=== PATIENT | male | born 1955 | race Caucasian/White ===

== ENCOUNTER 2022-09-25 05:27 | Inpatient (IN) | payer MEDICARE, OTHER ==
[2022-09-25] MEDS ORDERED: Ondansetron PF 4 MG/2 ML Vial ONE ×2 (05:52→17:22)
[2022-09-25] MEDS ORDERED: Morphine 4 MG/ML VIAL ONE ×3 (05:52→10:05)
[2022-09-25 06:53] LABS: #Basophils 0.1 10x3/uL (0.0-0.2); #Eosinphils 0.2 10x3/uL (0.0-0.5); #Monocytes 0.9 10x3/uL (0.0-1.1); #Neutrophils 10.4 10x3/uL (1.5-8.4); %Basophils 0.4 % (0.0-2.0); %Eosinophils 1.2 % (0.0-6.0); %Lymphocytes 7.2 % (18.0-47.0); %Monocytes 7.3 % (0.0-10.0); %Neutrophils 83.4 % (40.0-75.0); Hemoglobin 14.9 g/dL (13.5-17.5); Mean Corpuscular HGB CONC 31.8 g/dL (32.0-36.0); Mean Corpuscular Hemoglobin 30.1 pg (27.0-33.0); Mean Corpuscular Volume 94.7 fl (81.2-95.1); Mean Platelet Volume 10.9 fl (7.4-10.4); Platelet Count 138 10x3/uL (150-450); Red Blood Cell (RBC) Count 4.95 10x6/uL (4.32-5.72); White Blood Cell (WBC) Count 12.4 10x3/uL (3.5-10.5)
[2022-09-25 08:12] LABS: ALT (SGPT) 30 U/L (8-55); AST (SGOT) 25 U/L (5-34); Albumin 3.5 g/dL (3.4-4.8); Alkaline Phosphatase 100 U/L (40-110); Anion Gap 17 mmol/L (10-20); BUN (Urea Nitrogen) 30 mg/dL (8.4-25.7); Bilirubin, Total 0.5 mg/dL (0.2-1.2); Calc. Creatinine Clearance 0 mL/min (70-130); Calcium 8.7 mg/dL (7.8-10.44); Carbon Dioxide 18 mmol/L (23-31); Chloride 111 mmol/L (98-107); Estimated GFR 30; Globulin 3.2 g/dL (2.4-3.5); Glucose 237 mg/dL (80-115); Lipase 26 U/L (8-78); Potassium 5.5 mmol/L (3.5-5.1); Protein, Total 6.7 g/dL (5.8-8.1); Sodium 140 mmol/L (136-145)
[2022-09-25 08:15] LABS: Bilirubin Neg (Negative); Blood, Urine 150 (Negative); Clarity Slightly Cloudy (Clear); Glucose, Urine (Dipstick) 250 mg/dL (Negative); Ketone, Urine Negative (Negative); Leukocyte 500 (Negative); Nitrite Positive (Negative); Protein, Urine (Dipstick) 30 mg/dl (Neg-Trace); Urobilinogen Normal mg/dL (Less than 2)
[2022-09-25 08:27] LABS: Squamous Epithelial 0-3 HPF (0-3); WBC/HPF 21-50 HPF (0-3)
[2022-09-25 08:28] LABS: Bacteria/HPF 2+ HPF (None Seen); Oval Fat Bodies/HPF 1+ HPF (None Seen)
[2022-09-25] MEDS ORDERED: cefTRIAXone (ROCEPHIN) 2 GM VIAL ONE (09:58)
[2022-09-25] MEDS ORDERED: Senokot S 8.6-50 MG TAB PO PRN (13:29)
[2022-09-25] MEDS ORDERED: Acetaminophen 325 MG TAB PO PRN (13:29)
[2022-09-25] MEDS ORDERED: Ondansetron ODT 4 MG TAB PO PRN (13:29)
[2022-09-25] MEDS ORDERED: Dextrose 5% in Water 1,000 ML IV PRN (13:31)
[2022-09-25] MEDS ORDERED: Dextrose 50% Abboject 50 ML SYRINGE SLOW IVP PRN (13:31)
[2022-09-25] MEDS ORDERED: Iopamidol 0 ML ONE (13:54)
[2022-09-25 15:33] LABS: SARS-CoV-2 NAA Rapid Test Not Detected (NotDetected)
[2022-09-25] MEDS ORDERED: SUGAMMADEX SODIUM 200 MG/2 ML VIAL ONE (17:16)
[2022-09-25] MEDS ORDERED: PROPOFOL 20 ML ONE ×2 (17:20→17:39)
[2022-09-25] MEDS ORDERED: Fentanyl 100 MCG/2 ML VIAL ONE (17:21)
[2022-09-25] MEDS ORDERED: Dexamethasone 4 mg/ml Vial ONE (17:22)
[2022-09-25] MEDS ORDERED: PHENYLEPHRINE-NS 100 MCG/ML 10 ML SYRINGE ONE ×3 (17:23→18:34)
[2022-09-25] MEDS ORDERED: Lidocaine 1% PF 5 ML VIAL ONE (17:23)
[2022-09-25] MEDS ORDERED: Rocuronium Bromide 10 MG/ML (10ML VIAL) ONE (17:23)
[2022-09-25] MEDS ORDERED: Gentamicin 80 MG/2 ML VIAL ONE (17:25)
[2022-09-25] MEDS: Ondansetron PF 4 MG/2 ML Vial IVP PRN (20:11)
[2022-09-25] MEDS: Morphine 4 MG/ML VIAL SLOW IVP PRN (20:13)
[2022-09-25] MEDS: Ferrous Sulfate 325 MG TAB PO SCH (21:38)
[2022-09-25] MEDS: Lactated Ringer's 1,000 ML IV SCH (21:38)
[2022-09-25] MEDS: HumaLOG 300 UNITS/3 ML VIAL SC PRN (22:34)
[2022-09-26 01:52] VITALS: BMI 42.8
[2022-09-26] MEDS: Levothyroxine Sodium 50 MCG TAB PO SCH (06:03)
[2022-09-26] MEDS: HumaLOG 300 UNITS/3 ML VIAL SC PRN ×3 (06:06→20:27)
[2022-09-26 07:38] LABS: #Monocytes 0.8 10x3/uL (0.0-1.1); #Neutrophils 9.4 10x3/uL (1.5-8.4); %Basophils 0.1 % (0.0-2.0); %Lymphocytes 8.2 % (18.0-47.0); %Neutrophils 84.2 % (40.0-75.0); Hemoglobin 13.2 g/dL (13.5-17.5); Mean Corpuscular Hemoglobin 30.4 pg (27.0-33.0); Mean Corpuscular Volume 94.9 fl (81.2-95.1); Mean Platelet Volume 11.5 fl (7.4-10.4); Platelet Count 147 10x3/uL (150-450); RBC Distribution Width 13.6 % (11.5-14.5); Red Blood Cell (RBC) Count 4.34 10x6/uL (4.32-5.72); White Blood Cell (WBC) Count 11.2 10x3/uL (3.5-10.5)
[2022-09-26] MEDS: Lactated Ringer's 1,000 ML IV SCH (07:38)
[2022-09-26 07:51] LABS: Anion Gap 14 mmol/L (10-20); BUN (Urea Nitrogen) 32 mg/dL (8.4-25.7); Calc. Creatinine Clearance 70 mL/min (70-130); Calcium 8.3 mg/dL (7.8-10.44); Carbon Dioxide 19 mmol/L (23-31); Chloride 110 mmol/L (98-107); Estimated GFR 30; Glucose 222 mg/dL (80-115); Magnesium 1.9 mg/dL (1.6-2.6); Potassium 5.7 mmol/L (3.5-5.1); Sodium 137 mmol/L (136-145)
[2022-09-26 08:16] LABS: Lymphocytes 4 % (21-51); Monocytes 7 % (0-10); Neutrophil 86 % (42-75); Reactive Lymphocytes 3 % (0-10)
[2022-09-26 08:17] LABS: Platelet Morphology Comment Appears Adequate
[2022-09-26] MEDS: cefTRIAXone\\ROCEPHIN 2 GM in Sodium Chloride 0.9% 100 ML IVPB SCH (09:18)
[2022-09-26] MEDS: Atorvastatin Calcium 10 MG TAB PO SCH (09:20)
[2022-09-26] MEDS: Ferrous Sulfate 325 MG TAB PO SCH ×3 (09:20→20:27)
[2022-09-26] MEDS: Tamsulosin HCl 0.4 MG CAP PO SCH (09:20)
[2022-09-26] MEDS ORDERED: LOKELMA 5 GM PACKET PO SCH (09:30)
[2022-09-26] MEDS ORDERED: Sodium Bicarbonate 150 MEQ, Admixture Fee 1 EACH in Dextrose 5% in Water 1,000 ML IV SCH (09:30)
[2022-09-26] MEDS: Morphine 4 MG/ML VIAL SLOW IVP PRN (17:40)
[2022-09-27] MEDS: Morphine 4 MG/ML VIAL SLOW IVP PRN ×3 (01:12→16:09)
[2022-09-27] MEDS: Levothyroxine Sodium 50 MCG TAB PO SCH (05:25)
[2022-09-27 06:10] LABS: #Eosinphils 0.1 10x3/uL (0.0-0.5); #Monocytes 0.8 10x3/uL (0.0-1.1); %Basophils 0.3 % (0.0-2.0); %Eosinophils 1.4 % (0.0-6.0); %Lymphocytes 12.6 % (18.0-47.0); %Monocytes 9.2 % (0.0-10.0); %Neutrophils 76.2 % (40.0-75.0); Hemoglobin 14.2 g/dL (13.5-17.5); Mean Corpuscular HGB CONC 32.3 g/dL (32.0-36.0); Mean Corpuscular Hemoglobin 30.2 pg (27.0-33.0); Mean Corpuscular Volume 93.6 fl (81.2-95.1); Mean Platelet Volume 10.8 fl (7.4-10.4); Platelet Count 157 10x3/uL (150-450); White Blood Cell (WBC) Count 9.2 10x3/uL (3.5-10.5)
[2022-09-27 06:28] LABS: Anion Gap 16 mmol/L (10-20); BUN (Urea Nitrogen) 32 mg/dL (8.4-25.7); Calc. Creatinine Clearance 70 mL/min (70-130); Calcium 8.8 mg/dL (7.8-10.44); Carbon Dioxide 21 mmol/L (23-31); Chloride 107 mmol/L (98-107); Estimated GFR 30; Glucose 184 mg/dL (80-115); Potassium 4.5 mmol/L (3.5-5.1); Sodium 139 mmol/L (136-145)
[2022-09-27] MEDS: HumaLOG 300 UNITS/3 ML VIAL SC PRN ×3 (06:51→20:44)
[2022-09-27] MEDS: Ferrous Sulfate 325 MG TAB PO SCH ×3 (08:50→20:38)
[2022-09-27] MEDS: Tamsulosin HCl 0.4 MG CAP PO SCH (08:55)
[2022-09-27] MEDS: Atorvastatin Calcium 10 MG TAB PO SCH (08:55)
[2022-09-27] MEDS: cefTRIAXone\\ROCEPHIN 2 GM in Sodium Chloride 0.9% 100 ML IVPB SCH (08:58)
[2022-09-27] MEDS ORDERED: Senokot S 8.6-50 MG TAB PO PRN (10:15)
[2022-09-27] MEDS: Ondansetron PF 4 MG/2 ML Vial IVP PRN (11:32)
[2022-09-27] MEDS ORDERED: Morphine 4 MG/ML VIAL SLOW IVP PRN (16:38)
[2022-09-27] MEDS ORDERED: Oxybutynin 5 MG TAB PO SCH (17:00)
[2022-09-28] MEDS: Levothyroxine Sodium 50 MCG TAB PO SCH (05:35)
[2022-09-28] MEDS: HumaLOG 300 UNITS/3 ML VIAL SC PRN (06:32)
[2022-09-28] MEDS: Tamsulosin HCl 0.4 MG CAP PO SCH (08:09)
[2022-09-28] MEDS: cefTRIAXone\\ROCEPHIN 2 GM in Sodium Chloride 0.9% 100 ML IVPB SCH (08:09)
[2022-09-28] MEDS: Ferrous Sulfate 325 MG TAB PO SCH (08:10)
[2022-09-28] MEDS: Atorvastatin Calcium 10 MG TAB PO SCH (08:10)
[2022-09-28] MEDS ORDERED: Oxybutynin 5 MG TAB PO SCH (09:00)
[2022-09-28 13:20] VITALS: BP 131/61; TEMP 98.5
== END 2022-09-28 14:02 | disposition home or self-care (01) | DRG 660 ==
LOC: CSHERS 05:27 → CSHTELE 17:18
PROVIDERS: ADMIT Internal Medicine; ATTEND Internal Medicine
PROC: 0TP98DZ Removal of Intraluminal Device from Ureter, Via Natural or Artificial Opening Endoscopic (ICD-10-PCS; principal; 2022-09-25)
PROC: 0T778DZ Dilation of Left Ureter with Intraluminal Device, Via Natural or Artificial Opening Endoscopic (ICD-10-PCS; 2022-09-25)
DX: T83.89XA Other specified complication of genitourinary prosthetic devices, implants and grafts, initial encounter (principal); N13.6 Pyonephrosis; Z68.41 Body mass index [BMI] 40.0-44.9, adult; N17.9 Acute kidney failure, unspecified; Y83.8 Other surgical procedures as the cause of abnormal reaction of the patient, or of later complication, without mention of misadventure at the time of the procedure; I12.9 Hypertensive chronic kidney disease with stage 1 through stage 4 chronic kidney disease, or unspecified chronic kidney disease; E11.22 Type 2 diabetes mellitus with diabetic chronic kidney disease; N18.30 Chronic kidney disease, stage 3 unspecified; E87.6 Hypokalemia; Z20.822 Contact with and (suspected) exposure to COVID-19; E78.00 Pure hypercholesterolemia, unspecified; Z60.2 Problems related to living alone; Z88.8 Allergy status to other drugs, medicaments and biological substances; Z86.718 Personal history of other venous thrombosis and embolism; Z79.01 Long term (current) use of anticoagulants; Z79.4 Long term (current) use of insulin; Z79.899 Other long term (current) drug therapy; Z79.890 Hormone replacement therapy; Z88.0 Allergy status to penicillin; Z88.2 Allergy status to sulfonamides; Z80.9 Family history of malignant neoplasm, unspecified; Z83.3 Family history of diabetes mellitus; Z82.49 Family history of ischemic heart disease and other diseases of the circulatory system; Z87.891 Personal history of nicotine dependence; Z86.711 Personal history of pulmonary embolism; E66.01 Morbid (severe) obesity due to excess calories; E03.9 Hypothyroidism, unspecified
CPT/HCPCS: 36415; 36416; 51600; 74176; 74430; 80048; 80053; 81003; 81015; 83605; 83690; 83735; 85025; 87040; 87086; 93005; 93010; 94760; 96361; 96365; 96366; 96375; 96376; C1769; C2625; J0696; J1100; J1580; J1650; J1815; J2270; J2405; J2704; J3010; J3490; J7070; J7120; Q9967; U0002

== ENCOUNTER 2023-08-10 06:19 | Inpatient (IN) | payer MEDICARE, OTHER ==
[2023-08-10] MEDS ORDERED: Dexamethasone 10 MG/ML VIAL ONE (06:43)
[2023-08-10 07:04] LABS: #Eosinphils 0.2 10x3/uL (0.0-0.5); #Monocytes 0.4 10x3/uL (0.0-1.1); #Neutrophils 12.2 10x3/uL (1.5-8.4); %Basophils 0.3 % (0.0-2.0); %Eosinophils 1.3 % (0.0-6.0); %Monocytes 2.7 % (0.0-10.0); Hematocrit 45.5 % (38.8-50.0); Hemoglobin 14.7 g/dL (13.5-17.5); Mean Corpuscular HGB CONC 32.3 g/dL (32.0-36.0); Mean Corpuscular Volume 92.9 fl (81.2-95.1); Mean Platelet Volume 11.1 fl (7.4-10.4); Platelet Count 143 10x3/uL (150-450); RBC Distribution Width 13.3 % (11.5-14.5); White Blood Cell (WBC) Count 13.4 10x3/uL (3.5-10.5)
[2023-08-10 07:19] LABS: ALT (SGPT) 28 U/L (8-55); AST (SGOT) 25 U/L (5-34); Albumin 3.6 g/dL (3.4-4.8); Alkaline Phosphatase 107 U/L (40-110); Anion Gap 15 mmol/L (10-20); BUN (Urea Nitrogen) 25 mg/dL (8.4-25.7); Bilirubin, Total 0.4 mg/dL (0.2-1.2); Calc. Creatinine Clearance 0 mL/min (70-130); Calcium 8.7 mg/dL (7.8-10.44); Carbon Dioxide 18 mmol/L (23-31); Chloride 107 mmol/L (98-107); Estimated GFR 36; Globulin 3.5 g/dL (2.4-3.5); Glucose 356 mg/dL (80-115); Potassium 4.5 mmol/L (3.5-5.1); Protein, Total 7.1 g/dL (5.8-8.1); Sodium 135 mmol/L (136-145)
[2023-08-10 07:25] LABS: Troponin I Less than 0.010 ng/mL (< 0.028)
[2023-08-10] MEDS ORDERED: Morphine 4 MG/ML VIAL ONE (07:49)
[2023-08-10] MEDS ORDERED: Ondansetron PF 4 MG/2 ML Vial ONE (07:49)
[2023-08-10] MEDS ORDERED: Cefepime 2 GM VIAL ONE (07:49)
[2023-08-10 08:39] LABS: Bilirubin Neg (Negative); Blood, Urine 50 (Negative); Glucose, Urine (Dipstick) >=1000 mg/dL (Negative); Ketone, Urine Negative (Negative); Leukocyte 500 (Negative); Nitrite Positive (Negative); Protein, Urine (Dipstick) 100 mg/dl (Neg-Trace); Urobilinogen Normal mg/dL (Less than 2)
[2023-08-10 08:48] LABS: Clarity Slightly Cloudy (Clear)
[2023-08-10 08:49] LABS: Bacteria/HPF 3+ HPF (None Seen); CAUTI Indications for Culture Fever or rigors; Squamous Epithelial 0-3 HPF (0-3); WBC/HPF Greater than 50 HPF (0-3)
[2023-08-10 08:51] LABS: Urine Culture Reflex Yes Yes
[2023-08-10 09:50] LABS: Lactic Acid 2.2 mmol/L (0.5-2.2)
[2023-08-10 11:12] VITALS: BMI 43.0
[2023-08-10] MEDS ORDERED: HYDROcodone/Acetaminophen 5/325 mg Tablet PO PRN (11:20)
[2023-08-10] MEDS ORDERED: Ondansetron ODT 4 MG TAB PO PRN (11:52)
[2023-08-10] MEDS ORDERED: Dextrose 5% in Water 1,000 ML IV PRN (11:55)
[2023-08-10] MEDS ORDERED: Glucagon 1 MG/ML KIT IM PRN (11:55)
[2023-08-10] MEDS ORDERED: Dextrose 50% Abboject 50 ML SYRINGE SLOW IVP PRN (11:55)
[2023-08-10] MEDS: HYDROcodone/Acetaminophen 5/325 mg Tablet PO PRN (11:59)
[2023-08-10] MEDS: Sodium Chloride 0.9% 1,000 ML IV SCH (12:42)
[2023-08-10] MEDS: Insulin Regular 300 UNITS/3 ML VIAL SC PRN (12:43)
[2023-08-10] MEDS: VANCOMYCIN 2 GRAM/400 ML BAG 2 GM in Premix 1 BAG IVPB SCH (14:22)
[2023-08-10] MEDS: Morphine 4 MG/ML VIAL SLOW IVP PRN (18:12)
[2023-08-10] MEDS: Insulin Regular 300 UNITS/3 ML VIAL SC SCH (20:13)
[2023-08-10] MEDS: cefTRIAXone\\ROCEPHIN 1 GM in Sodium Chloride 0.9% 100 ML IVPB SCH (20:14)
[2023-08-10] MEDS: Apixaban 5 MG TAB PO SCH (20:16)
[2023-08-11] MEDS: Insulin Regular 300 UNITS/3 ML VIAL SC PRN (00:15)
[2023-08-11] MEDS: Acetaminophen 325 MG TAB PO PRN (04:07)
[2023-08-11 04:25] LABS: Hematocrit 43.3 % (38.8-50.0); Hemoglobin 14.5 g/dL (13.5-17.5); Mean Corpuscular HGB CONC 33.5 g/dL (32.0-36.0); Mean Corpuscular Hemoglobin 31.2 pg (27.0-33.0); Mean Corpuscular Volume 93.1 fl (81.2-95.1); Platelet Count 144 10x3/uL (150-450); RBC Distribution Width 13.5 % (11.5-14.5); Red Blood Cell (RBC) Count 4.65 10x6/uL (4.32-5.72); White Blood Cell (WBC) Count 21.7 10x3/uL (3.5-10.5)
[2023-08-11 04:30] LABS: MDiff Complete? YES
[2023-08-11 04:34] LABS: Anion Gap 13 mmol/L (10-20); BUN (Urea Nitrogen) 22 mg/dL (8.4-25.7); Calc. Creatinine Clearance 82 mL/min (70-130); Calcium 8.3 mg/dL (7.8-10.44); Carbon Dioxide 19 mmol/L (23-31); Chloride 108 mmol/L (98-107); Estimated GFR 36; Glucose 312 mg/dL (80-115); Potassium 4.6 mmol/L (3.5-5.1); Sodium 135 mmol/L (136-145)
[2023-08-11 04:58] LABS: Platelet Adequacy Comment Appears Decreased; RBC Morph Comment Within Normal Limits
[2023-08-11 05:01] LABS: Band 11 % (5-11); Lymphocytes 5 % (21-51); Monocytes 6 % (0-10); Neutrophil 78 % (42-75)
[2023-08-11] MEDS: Levothyroxine Sodium 50 MCG TAB PO SCH (06:10)
[2023-08-11] MEDS: VANCOMYCIN 2 GRAM/400 ML BAG 2 GM in Premix 1 BAG IVPB SCH (08:29)
[2023-08-11] MEDS ORDERED: Vancomycin 1 GM in Premix 1 BAG IVPB SCH (09:00)
[2023-08-11] MEDS: Ondansetron PF 4 MG/2 ML Vial IVP PRN (12:56)
[2023-08-11 13:43] LABS: Hemoglobin A1c 12.6 % (4.0-6.0)
[2023-08-12 03:48] LABS: #Basophils 0.1 10x3/uL (0.0-0.2); #Monocytes 1.1 10x3/uL (0.0-1.1); #Neutrophils 15.4 10x3/uL (1.5-8.4); %Basophils 0.3 % (0.0-2.0); %Eosinophils 0.2 % (0.0-6.0); %Lymphocytes 6.6 % (18.0-47.0); %Monocytes 5.8 % (0.0-10.0); %Neutrophils 85.3 % (40.0-75.0); Hematocrit 42.2 % (38.8-50.0); Hemoglobin 13.7 g/dL (13.5-17.5); Mean Corpuscular HGB CONC 32.5 g/dL (32.0-36.0); Mean Corpuscular Hemoglobin 30.4 pg (27.0-33.0); Mean Corpuscular Volume 93.8 fl (81.2-95.1); Mean Platelet Volume 10.7 fl (7.4-10.4); Platelet Count 140 10x3/uL (150-450); RBC Distribution Width 13.9 % (11.5-14.5); White Blood Cell (WBC) Count 18.1 10x3/uL (3.5-10.5)
[2023-08-12 03:59] LABS: Anion Gap 11 mmol/L (10-20); BUN (Urea Nitrogen) 23 mg/dL (8.4-25.7); Calc. Creatinine Clearance 94 mL/min (70-130); Calcium 8.4 mg/dL (7.8-10.44); Carbon Dioxide 19 mmol/L (23-31); Chloride 109 mmol/L (98-107); Estimated GFR 42; Glucose 176 mg/dL (80-115); Potassium 4.3 mmol/L (3.5-5.1); Sodium 135 mmol/L (136-145)
[2023-08-12] MEDS: Cyclobenzaprine 10 MG TAB PO PRN (16:49)
[2023-08-12] MEDS: cefTRIAXone\\ROCEPHIN 2 GM in Sodium Chloride 0.9% 100 ML IVPB SCH (21:55)
[2023-08-13 04:59] LABS: #Basophils 0.1 10x3/uL (0.0-0.2); #Eosinphils 0.2 10x3/uL (0.0-0.5); #Neutrophils 9.6 10x3/uL (1.5-8.4); %Basophils 0.4 % (0.0-2.0); %Eosinophils 1.7 % (0.0-6.0); %Lymphocytes 8.8 % (18.0-47.0); %Monocytes 7.9 % (0.0-10.0); %Neutrophils 79.6 % (40.0-75.0); Hematocrit 40.5 % (38.8-50.0); Hemoglobin 12.9 g/dL (13.5-17.5); Mean Corpuscular HGB CONC 31.9 g/dL (32.0-36.0); Mean Corpuscular Hemoglobin 29.8 pg (27.0-33.0); Mean Corpuscular Volume 93.5 fl (81.2-95.1); Mean Platelet Volume 11.2 fl (7.4-10.4); Platelet Count 144 10x3/uL (150-450); RBC Distribution Width 13.8 % (11.5-14.5); Red Blood Cell (RBC) Count 4.33 10x6/uL (4.32-5.72); White Blood Cell (WBC) Count 12.1 10x3/uL (3.5-10.5)
[2023-08-13 05:12] LABS: Anion Gap 12 mmol/L (10-20); BUN (Urea Nitrogen) 23 mg/dL (8.4-25.7); Calc. Creatinine Clearance 99 mL/min (70-130); Calcium 8.7 mg/dL (7.8-10.44); Carbon Dioxide 20 mmol/L (23-31); Chloride 108 mmol/L (98-107); Estimated GFR 45; Glucose 171 mg/dL (80-115); Potassium 3.9 mmol/L (3.5-5.1); Sodium 136 mmol/L (136-145)
[2023-08-13] MEDS ORDERED: Linezolid 600 MG TAB PO SCH ×2 (12:00→21:00)
[2023-08-13] MEDS: Doxycycline 100 MG CAP PO SCH ×2 (13:21→19:50)
[2023-08-13] MEDS: AMOXicillin 250 MG CAP PO SCH (13:21)
[2023-08-13] MEDS: Senokot S 8.6-50 MG TAB PO SCH ×2 (15:26→22:49)
[2023-08-13] MEDS: Magnesium Citrate 300 ML BOT PO SCH (15:27)
[2023-08-14 04:24] LABS: #Basophils 0.1 10x3/uL (0.0-0.2); #Eosinphils 0.3 10x3/uL (0.0-0.5); #Monocytes 0.9 10x3/uL (0.0-1.1); #Neutrophils 7.9 10x3/uL (1.5-8.4); %Basophils 0.5 % (0.0-2.0); %Lymphocytes 11.7 % (18.0-47.0); %Monocytes 8.4 % (0.0-10.0); %Neutrophils 75.3 % (40.0-75.0); Hematocrit 41.1 % (38.8-50.0); Hemoglobin 13.3 g/dL (13.5-17.5); Mean Corpuscular HGB CONC 32.4 g/dL (32.0-36.0); Mean Corpuscular Hemoglobin 30.2 pg (27.0-33.0); Mean Corpuscular Volume 93.2 fl (81.2-95.1); Mean Platelet Volume 11.2 fl (7.4-10.4); Platelet Count 164 10x3/uL (150-450); RBC Distribution Width 13.6 % (11.5-14.5); Red Blood Cell (RBC) Count 4.41 10x6/uL (4.32-5.72); White Blood Cell (WBC) Count 10.4 10x3/uL (3.5-10.5)
[2023-08-14 04:38] LABS: Anion Gap 13 mmol/L (10-20); BUN (Urea Nitrogen) 22 mg/dL (8.4-25.7); Calc. Creatinine Clearance 108 mL/min (70-130); Calcium 8.7 mg/dL (7.8-10.44); Carbon Dioxide 19 mmol/L (23-31); Chloride 108 mmol/L (98-107); Estimated GFR 50; Glucose 185 mg/dL (80-115); Sodium 136 mmol/L (136-145)
[2023-08-14] MEDS: AMOXicillin 250 MG CAP PO SCH (09:53)
[2023-08-14] MEDS ORDERED: Bisacodyl 10 MG SUPP PR PRN (16:31)
[2023-08-14] MEDS: HYDROcodone/Acetaminophen 5/325 mg Tablet PO PRN (21:13)
[2023-08-15 05:10] LABS: #Basophils 0.1 10x3/uL (0.0-0.2); #Eosinphils 0.4 10x3/uL (0.0-0.5); #Monocytes 0.9 10x3/uL (0.0-1.1); #Neutrophils 6.1 10x3/uL (1.5-8.4); %Basophils 0.6 % (0.0-2.0); %Eosinophils 4.3 % (0.0-6.0); %Lymphocytes 12.8 % (18.0-47.0); %Monocytes 9.9 % (0.0-10.0); %Neutrophils 70.6 % (40.0-75.0); Hematocrit 40.8 % (38.8-50.0); Hemoglobin 13.5 g/dL (13.5-17.5); Mean Corpuscular HGB CONC 33.1 g/dL (32.0-36.0); Mean Corpuscular Volume 93.8 fl (81.2-95.1); Mean Platelet Volume 10.5 fl (7.4-10.4); Platelet Count 176 10x3/uL (150-450); RBC Distribution Width 13.6 % (11.5-14.5); Red Blood Cell (RBC) Count 4.35 10x6/uL (4.32-5.72); White Blood Cell (WBC) Count 8.7 10x3/uL (3.5-10.5)
[2023-08-15 05:23] LABS: Anion Gap 11 mmol/L (10-20); BUN (Urea Nitrogen) 23 mg/dL (8.4-25.7); Calc. Creatinine Clearance 99 mL/min (70-130); Calcium 8.8 mg/dL (7.8-10.44); Carbon Dioxide 21 mmol/L (23-31); Chloride 109 mmol/L (98-107); Estimated GFR 45; Glucose 215 mg/dL (80-115); Potassium 4.4 mmol/L (3.5-5.1); Sodium 137 mmol/L (136-145)
[2023-08-15] MEDS: Polyethylene Glycol 3350 17 GM Packet PO PRN (08:47)
[2023-08-15] MEDS: Milk Of Magnesia 30 ML UDCUP PO SCH (12:33)
[2023-08-15] MEDS: Fleet Saline Enema 133 ML BOT PR SCH (13:18)
[2023-08-16 05:34] LABS: Anion Gap 12 mmol/L (10-20); BUN (Urea Nitrogen) 21 mg/dL (8.4-25.7); Calc. Creatinine Clearance 117 mL/min (70-130); Calcium 8.8 mg/dL (7.8-10.44); Carbon Dioxide 22 mmol/L (23-31); Chloride 108 mmol/L (98-107); Estimated GFR 55; Glucose 174 mg/dL (80-115); Potassium 4.2 mmol/L (3.5-5.1); Sodium 138 mmol/L (136-145)
[2023-08-16 05:36] LABS: #Basophils 0.1 10x3/uL (0.0-0.2); #Eosinphils 0.3 10x3/uL (0.0-0.5); #Monocytes 0.8 10x3/uL (0.0-1.1); #Neutrophils 5.4 10x3/uL (1.5-8.4); %Basophils 0.9 % (0.0-2.0); %Eosinophils 4.1 % (0.0-6.0); %Lymphocytes 15.1 % (18.0-47.0); %Monocytes 9.7 % (0.0-10.0); %Neutrophils 66.1 % (40.0-75.0); Hematocrit 42.5 % (38.8-50.0); Hemoglobin 13.8 g/dL (13.5-17.5); Mean Corpuscular HGB CONC 32.5 g/dL (32.0-36.0); Mean Corpuscular Hemoglobin 30.1 pg (27.0-33.0); Mean Corpuscular Volume 92.6 fl (81.2-95.1); Mean Platelet Volume 10.2 fl (7.4-10.4); Platelet Count 205 10x3/uL (150-450); RBC Distribution Width 13.6 % (11.5-14.5); Red Blood Cell (RBC) Count 4.59 10x6/uL (4.32-5.72); White Blood Cell (WBC) Count 8.1 10x3/uL (3.5-10.5)
[2023-08-16 12:04] VITALS: BP 144/74; TEMP 98.1
== END 2023-08-16 13:26 | disposition home or self-care (01) | DRG 872 ==
LOC: CSHERS 06:19 → CSHTELE 10:54
PROVIDERS: ADMIT Hospitalist; ATTEND Family Medicine
DX: A41.9 Sepsis, unspecified organism (principal); N10 Acute pyelonephritis; L03.116 Cellulitis of left lower limb; R65.20 Severe sepsis without septic shock; Z88.8 Allergy status to other drugs, medicaments and biological substances; Z88.0 Allergy status to penicillin; Z88.2 Allergy status to sulfonamides; Z88.1 Allergy status to other antibiotic agents; Z79.899 Other long term (current) drug therapy; Z79.01 Long term (current) use of anticoagulants; Z79.4 Long term (current) use of insulin; E03.9 Hypothyroidism, unspecified; E78.00 Pure hypercholesterolemia, unspecified; Z98.890 Other specified postprocedural states; N18.30 Chronic kidney disease, stage 3 unspecified; E11.22 Type 2 diabetes mellitus with diabetic chronic kidney disease; I12.9 Hypertensive chronic kidney disease with stage 1 through stage 4 chronic kidney disease, or unspecified chronic kidney disease; Z83.3 Family history of diabetes mellitus; Z82.49 Family history of ischemic heart disease and other diseases of the circulatory system; Z87.891 Personal history of nicotine dependence; K63.89 Other specified diseases of intestine; K59.00 Constipation, unspecified
CPT/HCPCS: 36415; 36416; 71045; 74176; 80048; 80053; 80202; 81001; 83036; 83605; 84145; 84484; 85025; 87040; 87077; 87086; 87149; 87186; 93005; 96374; 96375; J0692; J0696; J1100; J1815; J2270; J2405; J3370; J3490; J7050

== ENCOUNTER 2023-10-24 17:50 | Inpatient (IN) | payer MEDICARE ==
[2023-10-24] MEDS ORDERED: Morphine 4 MG/ML VIAL ONE (18:32)
[2023-10-24 19:05] LABS: ALT (SGPT) 27 U/L (8-55); AST (SGOT) 23 U/L (5-34); Albumin 3.1 g/dL (3.4-4.8); Alkaline Phosphatase 104 U/L (40-110); Anion Gap 13 mmol/L (10-20); BUN (Urea Nitrogen) 28 mg/dL (8.4-25.7); Bilirubin, Total 0.4 mg/dL (0.2-1.2); Calc. Creatinine Clearance 0 mL/min (70-130); Calcium 8.6 mg/dL (7.8-10.44); Carbon Dioxide 20 mmol/L (23-31); Chloride 107 mmol/L (98-107); Estimated GFR 37; Globulin 3.7 g/dL (2.4-3.5); Lipase 44 U/L (8-78); Magnesium 1.8 mg/dL (1.6-2.6); Potassium 4.4 mmol/L (3.5-5.1); Protein, Total 6.8 g/dL (5.8-8.1); Sodium 136 mmol/L (136-145)
[2023-10-24 19:13] LABS: #Basophils 0.06 10x3/uL (0.0-0.2); #Eosinphils 0.58 10x3/uL (0.0-0.5); #Monocytes 1.17 10x3/uL (0.0-1.1); #Neutrophils 10.22 10x3/uL (1.5-8.4); %Basophils 0.4 % (0.0-2.0); %Eosinophils 4.2 % (0.0-6.0); %Lymphocytes 13.2 % (18.0-47.0); %Monocytes 8.4 % (0.0-10.0); %Neutrophils 73.2 % (40.0-75.0); Hemoglobin 15.3 g/dL (13.5-17.5); Mean Corpuscular Hemoglobin 30.6 pg (27.0-33.0); Mean Platelet Volume 11.4 fl (7.4-10.4); Platelet Count 207 10x3/uL (150-450); RBC Distribution Width 13.8 % (11.5-14.5)
[2023-10-24 19:15] LABS: Glucose 427 mg/dL (80-115)
[2023-10-24] MEDS ORDERED: Metoclopramide HCl 10 MG (2 mL) VIAL ONE (19:17)
[2023-10-24] MEDS ORDERED: HYDROmorphone 0.5 MG/0.5 ML SYRINGE ONE (19:17)
[2023-10-24 20:06] LABS: Troponin I Less than 0.010 ng/mL (< 0.028)
[2023-10-24] MEDS ORDERED: cefTRIAXone (ROCEPHIN) 1 GM VIAL ONE (20:10)
[2023-10-24] MEDS ORDERED: Labetalol HCl 100 MG/20 ML VIAL ONE (20:11)
[2023-10-24 20:13] LABS: Bilirubin Neg (Negative); Blood, Urine 250 (Negative); Clarity Cloudy (Clear); Glucose, Urine (Dipstick) >=1000 mg/dL (Negative); Ketone, Urine Negative (Negative); Leukocyte 100 (Negative); Nitrite Positive (Negative); Protein, Urine (Dipstick) 100 mg/dl (Neg-Trace); Specific Gravity, Urine 1.015 (1.005-1.030); Urobilinogen Normal mg/dL (Less than 2)
[2023-10-24] MEDS ORDERED: Ketorolac Tromethamine 30 MG (1 mL) VIAL ONE (20:45)
[2023-10-24] MEDS ORDERED: Pantoprazole 40 MG VIAL ONE (20:45)
[2023-10-24 21:02] LABS: Bacteria/HPF 1+ HPF (None Seen); CAUTI Indications for Culture Pelvic or flank pain; RBC/HPF 21-50 HPF (0-3); Squamous Epithelial None Seen HPF (0-3)
[2023-10-24 21:03] LABS: Urine Culture Reflex No No
[2023-10-24] MEDS ORDERED: Calcium Carbonate 500 MG ChewTAB PO PRN (22:07)
[2023-10-24] MEDS ORDERED: Acetaminophen 325 MG TAB PO PRN (22:07)
[2023-10-24] MEDS ORDERED: Dextrose 50% Abboject 50 ML SYRINGE SLOW IVP PRN (22:07)
[2023-10-24] MEDS ORDERED: Glucagon 1 MG/ML KIT IM PRN (22:07)
[2023-10-24] MEDS ORDERED: Dextrose 5% in Water 1,000 ML IV PRN (22:07)
[2023-10-24] MEDS ORDERED: Ondansetron PF 4 MG/2 ML Vial IVP PRN (22:07)
[2023-10-24] MEDS ORDERED: Ipratropium/Albuterol 3 ML NEB NEB PRN (22:12)
[2023-10-24] MEDS: Meropenem 1 GM in Sodium Chloride 0.9% 100 ML IVPB SCH ×2 (22:15→23:45)
[2023-10-24 23:20] VITALS: BMI 44.6
[2023-10-24] MEDS: VANCOMYCIN 2 GRAM/400 ML BAG 2 GM in Premix 1 BAG IVPB SCH (23:22)
[2023-10-24] MEDS: Lactated Ringer's 1,000 ML IV SCH (23:39)
[2023-10-24] MEDS: Lantus 1000 UNITS/10 ML VIAL SC SCH (23:40)
[2023-10-24] MEDS: HumaLOG 300 UNITS/3 ML VIAL SC PRN (23:42)
[2023-10-24] MEDS: Morphine 4 MG/ML VIAL SLOW IVP PRN (23:57)
[2023-10-25 01:46] LABS: Legionella Urinary Ag Negative (Negative); Strep pneumo Urine Ag NEGATIVE (NEGATIVE)
[2023-10-25] MEDS: diphenhydrAMINE 50 MG/ML VIAL IVP SCH (03:58)
[2023-10-25 04:02] LABS: #Basophils 0.03 10x3/uL (0.0-0.2); #Eosinphils 0.26 10x3/uL (0.0-0.5); #Monocytes 1.05 10x3/uL (0.0-1.1); #Neutrophils 10.86 10x3/uL (1.5-8.4); %Basophils 0.2 % (0.0-2.0); %Lymphocytes 4.9 % (18.0-47.0); %Monocytes 8.2 % (0.0-10.0); %Neutrophils 84.3 % (40.0-75.0); Hematocrit 47.1 % (38.8-50.0); Hemoglobin 15.2 g/dL (13.5-17.5); Mean Corpuscular HGB CONC 32.3 g/dL (32.0-36.0); Mean Corpuscular Hemoglobin 29.6 pg (27.0-33.0); Mean Corpuscular Volume 91.8 fl (81.2-95.1); Mean Platelet Volume 10.9 fl (7.4-10.4); Platelet Count 166 10x3/uL (150-450); Red Blood Cell (RBC) Count 5.13 10x6/uL (4.32-5.72); White Blood Cell (WBC) Count 12.9 10x3/uL (3.5-10.5)
[2023-10-25 04:12] LABS: Anion Gap 12 mmol/L (10-20); BUN (Urea Nitrogen) 28 mg/dL (8.4-25.7); Calc. Creatinine Clearance 71 mL/min (70-130); Calcium 8.5 mg/dL (7.8-10.44); Carbon Dioxide 21 mmol/L (23-31); Chloride 108 mmol/L (98-107); Estimated GFR 29; Glucose 390 mg/dL (80-115); Potassium 4.6 mmol/L (3.5-5.1); Sodium 136 mmol/L (136-145)
[2023-10-25 04:14] LABS: Vancomycin, Random 16.7 ug/mL (See Comment)
[2023-10-25] MEDS: Cefepime 2 GM in Sodium Chloride 0.9% 100 ML IVPB SCH (05:43)
[2023-10-25] MEDS: dilTIAZem CD 180 MG CAP PO SCH (05:44)
[2023-10-25] MEDS: Pantoprazole 40 MG VIAL IVP SCH (05:44)
[2023-10-25] MEDS: Levothyroxine Sodium 50 MCG TAB PO SCH (06:47)
[2023-10-25] MEDS ORDERED: Meropenem 1 GM in Sodium Chloride 0.9% 100 ML IVPB SCH (08:00)
[2023-10-25] MEDS: Lantus 1000 UNITS/10 ML VIAL SC SCH ×2 (09:16→21:31)
[2023-10-25] MEDS ORDERED: Vancomycin Dose by Levels Sliding Scale (Wt > 99) FS SCH (09:30)
[2023-10-25 12:04] LABS: Hemoglobin A1c 12.1 % (4.0-6.0)
[2023-10-25] MEDS ORDERED: fentaNYL 50 mcg/mL 1 mL Vial ONE (12:17)
[2023-10-25] MEDS ORDERED: Esmolol 100 MG/10 ML VIAL ONE (12:22)
[2023-10-25] MEDS ORDERED: PHENYLEPHRINE-NS 100 MCG/ML 10 ML SYRINGE ONE (12:27)
[2023-10-25] MEDS ORDERED: Iopamidol 15 ML ONE (13:30)
[2023-10-25] MEDS ORDERED: Vancomycin 1 GM in Sodium Chloride 0.9% 250 ML 250 ML IVPB SCH (15:00)
[2023-10-25] MEDS ORDERED: Atorvastatin Calcium 10 MG TAB PO SCH (21:00)
[2023-10-25] MEDS ORDERED: Tamsulosin HCl 0.4 MG CAP PO SCH ×2 (21:00)
[2023-10-25 22:03] LABS: Vancomycin, Random 9.9 ug/mL (See Comment)
[2023-10-25] MEDS: VANCOMYCIN 1.25 GM/250 ML BAG 1.25 GM in Premix 1 BAG IVPB SCH (23:09)
[2023-10-26 03:39] LABS: #Basophils 0.02 10x3/uL (0.0-0.2); #Monocytes 0.78 10x3/uL (0.0-1.1); #Neutrophils 6.37 10x3/uL (1.5-8.4); %Basophils 0.2 % (0.0-2.0); %Eosinophils 5.7 % (0.0-6.0); %Lymphocytes 11.6 % (18.0-47.0); %Monocytes 8.9 % (0.0-10.0); %Neutrophils 73.1 % (40.0-75.0); Hematocrit 42.9 % (38.8-50.0); Hemoglobin 13.7 g/dL (13.5-17.5); Mean Corpuscular HGB CONC 31.9 g/dL (32.0-36.0); Mean Corpuscular Hemoglobin 29.6 pg (27.0-33.0); Mean Corpuscular Volume 92.7 fl (81.2-95.1); Mean Platelet Volume 10.7 fl (7.4-10.4); Platelet Count 166 10x3/uL (150-450); RBC Distribution Width 14.4 % (11.5-14.5); Red Blood Cell (RBC) Count 4.63 10x6/uL (4.32-5.72); White Blood Cell (WBC) Count 8.7 10x3/uL (3.5-10.5)
[2023-10-26 03:51] LABS: Anion Gap 10 mmol/L (10-20); BUN (Urea Nitrogen) 27 mg/dL (8.4-25.7); Calc. Creatinine Clearance 75 mL/min (70-130); Calcium 8.6 mg/dL (7.8-10.44); Carbon Dioxide 21 mmol/L (23-31); Chloride 108 mmol/L (98-107); Estimated GFR 31; Glucose 304 mg/dL (80-115); Potassium 4.4 mmol/L (3.5-5.1); Sodium 135 mmol/L (136-145)
[2023-10-26] MEDS: Senokot S 8.6-50 MG TAB PO PRN (05:56)
[2023-10-26] MEDS: Tamsulosin HCl 0.4 MG CAP PO SCH (08:36)
[2023-10-26] MEDS: Loratadine 10 MG TAB PO SCH (08:37)
[2023-10-26] MEDS: Atorvastatin Calcium 10 MG TAB PO SCH (08:37)
[2023-10-26 22:47] LABS: Vancomycin, Trough 8.9 ug/mL
[2023-10-26] MEDS: VANCOMYCIN 1.25 GM/250 ML BAG 1.25 GM in Premix 1 BAG IVPB SCH (23:25)
[2023-10-27 05:02] LABS: Anion Gap 11 mmol/L (10-20); BUN (Urea Nitrogen) 25 mg/dL (8.4-25.7); Carbon Dioxide 19 mmol/L (23-31); Chloride 111 mmol/L (98-107); Potassium 4.1 mmol/L (3.5-5.1); Sodium 137 mmol/L (136-145)
[2023-10-27 05:03] LABS: Calc. Creatinine Clearance 84 mL/min (70-130); Calcium 8.6 mg/dL (7.6-10.4); Estimated GFR 36; Glucose 215 mg/dL (80-115)
[2023-10-27 05:58] LABS: Hemoglobin 13.3 g/dL (13.5-17.5); Mean Corpuscular HGB CONC 32.4 g/dL (32.0-36.0); Mean Corpuscular Volume 92.3 fl (81.2-95.1); Red Blood Cell (RBC) Count 4.44 10x6/uL (4.32-5.72)
[2023-10-27 05:59] LABS: #Neutrophils 5.52 10x3/uL (1.5-8.4); %Basophils 0.4 % (0.0-2.0); %Eosinophils 6.5 % (0.0-6.0); %Lymphocytes 13.8 % (18.0-47.0); %Monocytes 9.3 % (0.0-10.0); %Neutrophils 69.4 % (40.0-75.0); Platelet Count 159 10x3/uL (130-400); RBC Distribution Width 14.2 % (11.5-14.5)
[2023-10-27 06:00] LABS: #Basophils 0.03 10x3/uL (0.0-0.2); #Eosinphils 0.52 10x3/uL (0.0-0.5); #Monocytes 0.74 10x3/uL (0.0-1.1)
[2023-10-27] MEDS: diphenhydrAMINE 25 MG CAP PO PRN (09:21)
[2023-10-27] MEDS: Pantoprazole DR 40 MG TAB PO SCH (09:21)
[2023-10-27] MEDS: Apixaban 5 MG TAB PO SCH (09:26)
[2023-10-27] MEDS: Ketotifen 0.035% Ophth Soln 5 ml Bottle EA EYE SCH (09:26)
[2023-10-27] MEDS: VANCOMYCIN 2 GRAM/400 ML BAG 2 GM in Premix 1 BAG IVPB SCH (12:08)
[2023-10-27] MEDS ORDERED: Cyclobenzaprine 10 MG TAB PO PRN (17:51)
[2023-10-27] MEDS: Cyclobenzaprine 10 MG TAB PO SCH (17:59)
[2023-10-27] MEDS: HYDROcodone/Acetaminophen 5/325 mg Tablet PO PRN (21:57)
[2023-10-28] MEDS: diphenhydrAMINE 25 MG CAP PO SCH (03:04)
[2023-10-28] MEDS: predniSONE 20 MG TAB PO SCH (03:04)
[2023-10-28] MEDS: Famotidine 20 MG TAB PO SCH (03:04)
[2023-10-28 05:02] LABS: Anion Gap 11 mmol/L (10-20); BUN (Urea Nitrogen) 23 mg/dL (8.4-25.7); Calc. Creatinine Clearance 96 mL/min (70-130); Calcium 8.9 mg/dL (7.8-10.44); Carbon Dioxide 20 mmol/L (23-31); Chloride 109 mmol/L (98-107); Estimated GFR 42; Glucose 193 mg/dL (80-115); Sodium 136 mmol/L (136-145)
[2023-10-28 05:08] LABS: Vancomycin, Random 19.5 ug/mL (See Comment)
[2023-10-28 05:10] LABS: #Basophils 0.02 10x3/uL (0.0-0.2); #Eosinphils 0.49 10x3/uL (0.0-0.5); #Monocytes 0.55 10x3/uL (0.0-1.1); #Neutrophils 4.67 10x3/uL (1.5-8.4); %Basophils 0.3 % (0.0-2.0); %Eosinophils 7.2 % (0.0-6.0); %Lymphocytes 14.8 % (18.0-47.0); %Monocytes 8.1 % (0.0-10.0); Hematocrit 41.4 % (38.8-50.0); Hemoglobin 13.7 g/dL (13.5-17.5); Mean Corpuscular HGB CONC 33.1 g/dL (32.0-36.0); Mean Corpuscular Hemoglobin 30.5 pg (27.0-33.0); Mean Corpuscular Volume 92.2 fl (81.2-95.1); Mean Platelet Volume 10.8 fl (7.4-10.4); Platelet Count 182 10x3/uL (150-450); RBC Distribution Width 13.9 % (11.5-14.5); Red Blood Cell (RBC) Count 4.49 10x6/uL (4.32-5.72); White Blood Cell (WBC) Count 6.8 10x3/uL (3.5-10.5)
[2023-10-28] MEDS ORDERED: Lactulose 20 GM (30 mL) UDCUP PO PRN (09:24)
[2023-10-28] MEDS: Lactulose 20 GM (30 mL) UDCUP PO SCH (09:47)
[2023-10-28] MEDS: LevoFLOXacin 750 MG TAB PO SCH (15:39)
[2023-10-28] MEDS: Hydrocortisone 1% Cream 30 GM TUBE TOP SCH (15:40)
[2023-10-29 03:49] LABS: #Basophils 0.03 10x3/uL (0.0-0.2); #Eosinphils 0.21 10x3/uL (0.0-0.5); #Monocytes 0.72 10x3/uL (0.0-1.1); #Neutrophils 6.71 10x3/uL (1.5-8.4); %Basophils 0.3 % (0.0-2.0); %Eosinophils 2.3 % (0.0-6.0); %Lymphocytes 13.9 % (18.0-47.0); %Neutrophils 74.6 % (40.0-75.0); Hematocrit 38.5 % (38.8-50.0); Hemoglobin 12.9 g/dL (13.5-17.5); Mean Corpuscular HGB CONC 33.5 g/dL (32.0-36.0); Mean Corpuscular Hemoglobin 29.9 pg (27.0-33.0); Mean Corpuscular Volume 89.1 fl (81.2-95.1); Mean Platelet Volume 10.8 fl (7.4-10.4); Platelet Count 202 10x3/uL (150-450); RBC Distribution Width 13.5 % (11.5-14.5); Red Blood Cell (RBC) Count 4.32 10x6/uL (4.32-5.72)
[2023-10-29 03:50] LABS: Anion Gap 10 mmol/L (10-20); BUN (Urea Nitrogen) 25 mg/dL (8.4-25.7); Calc. Creatinine Clearance 105 mL/min (70-130); Calcium 8.7 mg/dL (7.8-10.44); Carbon Dioxide 20 mmol/L (23-31); Chloride 110 mmol/L (98-107); Estimated GFR 47; Glucose 167 mg/dL (80-115); Potassium 4.1 mmol/L (3.5-5.1); Sodium 136 mmol/L (136-145)
[2023-10-29] MEDS: LevoFLOXacin 750 MG TAB PO SCH (06:43)
[2023-10-29 08:28] VITALS: TEMP 97.5
[2023-10-29] MEDS: Lactulose 20 GM (30 mL) UDCUP PO SCH (09:37)
[2023-10-29 10:07] VITALS: BMI 44.6
[2023-10-29 12:37] VITALS: BP 160/75
== END 2023-10-29 15:40 | disposition home or self-care (01) | DRG 853 ==
LOC: CSHERS 17:50 → CSHTELE 22:07
PROVIDERS: ADMIT Student in an Organized Health Care Education/Training Program; ATTEND Family Medicine
PROC: 3E03329 Introduction of Other Anti-infective into Peripheral Vein, Percutaneous Approach (ICD-10-PCS; 2023-10-24)
PROC: 0T778DZ Dilation of Left Ureter with Intraluminal Device, Via Natural or Artificial Opening Endoscopic (ICD-10-PCS; principal; 2023-10-25)
DX: A41.50 Gram-negative sepsis, unspecified (principal); J18.9 Pneumonia, unspecified organism; L03.116 Cellulitis of left lower limb; N17.9 Acute kidney failure, unspecified; Z68.41 Body mass index [BMI] 40.0-44.9, adult; N13.6 Pyonephrosis; E78.5 Hyperlipidemia, unspecified; I48.0 Paroxysmal atrial fibrillation; E11.22 Type 2 diabetes mellitus with diabetic chronic kidney disease; I12.9 Hypertensive chronic kidney disease with stage 1 through stage 4 chronic kidney disease, or unspecified chronic kidney disease; E03.9 Hypothyroidism, unspecified; N40.0 Benign prostatic hyperplasia without lower urinary tract symptoms; E66.01 Morbid (severe) obesity due to excess calories; Z88.0 Allergy status to penicillin; Z88.8 Allergy status to other drugs, medicaments and biological substances; Z79.899 Other long term (current) drug therapy; Z79.2 Long term (current) use of antibiotics; Z79.4 Long term (current) use of insulin; Z98.890 Other specified postprocedural states
CPT/HCPCS: 36415; 36416; 51701; 74176; 80048; 80053; 80202; 81001; 82010; 83036; 83605; 83690; 83735; 84100; 84145; 84484; 85025; 86140; 87040; 87449; 87899; 93005; 96374; 96375; 97139; C1769; C2625; C9113; J0692; J0696; J1170; J1200; J1815; J1885; J2185; J2270; J2765; J3010; J3370; J3490; J7120; J7512; Q9967

== ENCOUNTER 2023-12-31 13:02 | Inpatient (IN) | payer MEDICARE, OTHER ==
[2023-12-31] MEDS ORDERED: Morphine 4 MG/ML VIAL ONE ×2 (13:24→18:00)
[2023-12-31 14:07] LABS: #Basophils 0.05 10x3/uL (0.0-0.2); #Eosinphils 0.33 10x3/uL (0.0-0.5); #Monocytes 0.53 10x3/uL (0.0-1.1); #Neutrophils 5.73 10x3/uL (1.5-8.4); %Basophils 0.6 % (0.0-2.0); %Eosinophils 4.2 % (0.0-6.0); %Lymphocytes 14.7 % (18.0-47.0); %Monocytes 6.8 % (0.0-10.0); %Neutrophils 73.2 % (40.0-75.0); Hematocrit 47.9 % (38.8-50.0); Hemoglobin 15.7 g/dL (13.5-17.5); Mean Corpuscular HGB CONC 32.8 g/dL (32.0-36.0); Mean Corpuscular Hemoglobin 30.4 pg (27.0-33.0); Mean Corpuscular Volume 92.6 fL (81.2-95.1); Platelet Count 176 10x3/uL (150-450); RBC Distribution Width 14.5 % (11.5-14.5); Red Blood Cell (RBC) Count 5.17 10x6/uL (4.32-5.72); White Blood Cell (WBC) Count 7.8 10x3/uL (3.5-10.5)
[2023-12-31 14:12] LABS: ALT (SGPT) 25 U/L (8-55); AST (SGOT) 30 U/L (5-34); Albumin 3.3 g/dL (3.4-4.8); Alkaline Phosphatase 113 U/L (40-110); Anion Gap 16 mmol/L (10-20); BUN (Urea Nitrogen) 24 mg/dL (8.4-25.7); Bilirubin, Total 0.4 mg/dL (0.2-1.2); Calc. Creatinine Clearance 0 mL/min (70-130); Calcium 8.9 mg/dL (7.8-10.44); Carbon Dioxide 20 mmol/L (23-31); Chloride 110 mmol/L (98-107); Estimated GFR 44; Globulin 3.6 g/dL (2.4-3.5); Glucose 241 mg/dL (80-115); Lipase 14 U/L (8-78); Potassium 4.8 mmol/L (3.5-5.1); Protein, Total 6.9 g/dL (5.8-8.1); Sodium 141 mmol/L (136-145)
[2023-12-31 14:15] LABS: Troponin I Less than 0.010 ng/mL (< 0.028)
[2023-12-31] MEDS ORDERED: Orphenadrine Citrate 60 MG/2 ML VIAL ONE (14:23)
[2023-12-31 16:46] LABS: Clarity Mucous (Clear)
[2023-12-31 16:47] LABS: Leukocyte Large (Negative); Nitrite Positive (Negative)
[2023-12-31 16:50] LABS: Bilirubin Negative (Negative); Blood, Urine 250 (Negative); Glucose, Urine (Dipstick) 50 mg/dL (Negative); Ketone, Urine 5 mg/dL (Negative); Protein, Urine (Dipstick) 100 mg/dL (Neg-Trace); Urobilinogen Normal mg/dL (Less than 2)
[2023-12-31 16:52] LABS: Bacteria/HPF 4+ HPF (None Seen); CAUTI Indications for Culture Pelvic or flank pain; Triple Phosphate Crystal 2+ HPF (None Seen); WBC/HPF Greater than 50 HPF (0-3)
[2023-12-31 16:53] LABS: Urine Culture Reflex Yes Yes
[2023-12-31] MEDS ORDERED: cefTRIAXone (ROCEPHIN) 2 GM VIAL ONE (17:07)
[2023-12-31] MEDS ORDERED: Polyethylene Glycol 3350 17 GM Packet PO PRN (18:28)
[2023-12-31] MEDS ORDERED: Acetaminophen 325 MG TAB PO PRN (18:31)
[2023-12-31] MEDS ORDERED: Ondansetron PF 4 MG/2 ML Vial IVP PRN (18:31)
[2023-12-31] MEDS ORDERED: hydrALAZINE 20 MG/ML VIAL SLOW IVP PRN (18:32)
[2023-12-31] MEDS ORDERED: Morphine 2 MG/ML VIAL ONE (20:25)
[2023-12-31] MEDS: Famotidine 20 MG TAB PO SCH (23:37)
[2023-12-31] MEDS: Heparin 5,000 UNITS/ML VIAL SC SCH (23:37)
[2023-12-31] MEDS: Sodium Chloride 0.9% 1,000 ML IV SCH (23:37)
[2023-12-31] MEDS: Hydrocortisone 1% Cream 30 GM TUBE TOP SCH (23:41)
[2023-12-31] MEDS: Morphine 2 MG/ML VIAL SLOW IVP PRN (23:49)
[2024-01-01 05:11] LABS: #Basophils 0.04 10x3/uL (0.0-0.2); #Eosinphils 0.31 10x3/uL (0.0-0.5); #Monocytes 0.65 10x3/uL (0.0-1.1); #Neutrophils 5.49 10x3/uL (1.5-8.4); %Basophils 0.5 % (0.0-2.0); %Eosinophils 4.1 % (0.0-6.0); %Lymphocytes 13.9 % (18.0-47.0); %Monocytes 8.6 % (0.0-10.0); %Neutrophils 72.5 % (40.0-75.0); Hematocrit 45.5 % (38.8-50.0); Hemoglobin 14.6 g/dL (13.5-17.5); Mean Corpuscular HGB CONC 32.1 g/dL (32.0-36.0); Mean Corpuscular Hemoglobin 29.7 pg (27.0-33.0); Mean Corpuscular Volume 92.7 fL (81.2-95.1); Mean Platelet Volume 10.9 fL (7.4-10.4); Platelet Count 165 10x3/uL (150-450); RBC Distribution Width 14.6 % (11.5-14.5); Red Blood Cell (RBC) Count 4.91 10x6/uL (4.32-5.72); White Blood Cell (WBC) Count 7.6 10x3/uL (3.5-10.5)
[2024-01-01] MEDS: HYDROcodone/Acetaminophen 5/325 mg Tablet PO PRN (05:19)
[2024-01-01] MEDS: Cyclobenzaprine 10 MG TAB PO SCH ×3 (05:20→21:00)
[2024-01-01 05:23] LABS: Anion Gap 14 mmol/L (10-20); BUN (Urea Nitrogen) 22 mg/dL (8.4-25.7); Calc. Creatinine Clearance 229 mL/min (70-130); Calcium 8.8 mg/dL (7.8-10.44); Carbon Dioxide 20 mmol/L (23-31); Chloride 110 mmol/L (98-107); Estimated GFR 48; Glucose 237 mg/dL (80-115); Potassium 4.2 mmol/L (3.5-5.1); Sodium 140 mmol/L (136-145)
[2024-01-01] MEDS: Levothyroxine Sodium 50 MCG TAB PO SCH (05:36)
[2024-01-01] MEDS: Senokot S 8.6-50 MG TAB PO PRN (05:36)
[2024-01-01] MEDS ORDERED: Cyclobenzaprine 10 MG TAB PO PRN (07:23)
[2024-01-01] MEDS ORDERED: Dextrose 50% Abboject 50 ML SYRINGE SLOW IVP PRN (07:24)
[2024-01-01] MEDS ORDERED: Glucagon 1 MG/ML KIT IM PRN (07:24)
[2024-01-01] MEDS ORDERED: Dextrose 5% in Water 1,000 ML IV PRN (07:24)
[2024-01-01 08:46] VITALS: BMI 43.4
[2024-01-01] MEDS: Famotidine 20 MG TAB PO SCH (08:52)
[2024-01-01] MEDS: Loratadine 10 MG TAB PO SCH (08:52)
[2024-01-01] MEDS: dilTIAZem CD 180 MG CAP PO SCH (08:52)
[2024-01-01] MEDS: Tamsulosin HCl 0.4 MG CAP PO SCH (08:53)
[2024-01-01] MEDS: Heparin 5,000 UNITS/ML VIAL SC SCH (08:53)
[2024-01-01] MEDS: Lantus 1000 UNITS/10 ML VIAL SC SCH (08:54)
[2024-01-01] MEDS: Hydrocortisone 1% Cream 30 GM TUBE TOP SCH (08:55)
[2024-01-01] MEDS: Insulin Lispro 100 UNIT/ML 10 ML VIAL SC PRN (11:55)
[2024-01-01] MEDS: Morphine 4 MG/ML VIAL SLOW IVP SCH (12:48)
[2024-01-01] MEDS: Morphine 4 MG/ML VIAL ONE (12:49)
[2024-01-01] MEDS: cefTRIAXone\\ROCEPHIN 1 GM in Sodium Chloride 0.9% 100 ML IVPB SCH (17:09)
[2024-01-01] MEDS: Sodium Chloride 0.9% 1,000 ML IV SCH (17:14)
[2024-01-01] MEDS: Morphine 4 MG/ML VIAL SLOW IVP PRN (19:25)
[2024-01-01] MEDS: Gabapentin 300 MG CAP PO SCH (20:59)
[2024-01-01] MEDS: Atorvastatin Calcium 10 MG TAB PO SCH (21:00)
[2024-01-02] MEDS: HYDROcodone/Acetaminophen 7.5/325 mg Tablet PO PRN (01:52)
[2024-01-02 05:49] LABS: Anion Gap 12 mmol/L (10-20); BUN (Urea Nitrogen) 20 mg/dL (8.4-25.7); Calc. Creatinine Clearance 93 mL/min (70-130); Calcium 8.4 mg/dL (7.8-10.44); Carbon Dioxide 20 mmol/L (23-31); Chloride 112 mmol/L (98-107); Estimated GFR 42; Glucose 209 mg/dL (80-115); Potassium 4.1 mmol/L (3.5-5.1); Sodium 140 mmol/L (136-145)
[2024-01-02 07:17] VITALS: BP 134/63; TEMP 98.8
== END 2024-01-02 10:55 | disposition home or self-care (01) | DRG 690 ==
LOC: CSHERS 13:02 → CSHTELE 18:23
PROVIDERS: ADMIT Internal Medicine; ATTEND Internal Medicine
DX: N39.0 Urinary tract infection, site not specified (principal); E78.5 Hyperlipidemia, unspecified; I48.0 Paroxysmal atrial fibrillation; I12.9 Hypertensive chronic kidney disease with stage 1 through stage 4 chronic kidney disease, or unspecified chronic kidney disease; E11.22 Type 2 diabetes mellitus with diabetic chronic kidney disease; N18.30 Chronic kidney disease, stage 3 unspecified; J44.9 Chronic obstructive pulmonary disease, unspecified; E66.01 Morbid (severe) obesity due to excess calories; K59.00 Constipation, unspecified; E03.9 Hypothyroidism, unspecified; M48.061 Spinal stenosis, lumbar region without neurogenic claudication; M48.07 Spinal stenosis, lumbosacral region; Z88.0 Allergy status to penicillin; Z86.718 Personal history of other venous thrombosis and embolism; Z87.442 Personal history of urinary calculi; Z88.2 Allergy status to sulfonamides; Z91.09 Other allergy status, other than to drugs and biological substances; Z79.4 Long term (current) use of insulin; Z79.01 Long term (current) use of anticoagulants; Z79.899 Other long term (current) drug therapy
CPT/HCPCS: 36415; 36416; 70450; 72148; 74176; 80048; 80053; 81001; 83605; 83690; 84484; 85025; 87040; 87086; 93005; 94760; 94762; 96365; 96375; 96376; J0696; J1644; J1815; J2272; J2360; J7030